=== PATIENT | male | born 1935 | race Caucasian/White ===

== ENCOUNTER 2017-10-17 07:01 | Inpatient (IN) | payer OTHER, BC ==
[~2017-10-17] VITALS: Ht 157.5 cm; Wt 60.0 kg
[2017-10-17] MEDS ORDERED: NAMENDA10 M2 PO (07:34)
[2017-10-17] MEDS ORDERED: LEVOTHYROXINE0.05 M2 PO (07:34)
[2017-10-17] MEDS ORDERED: CREON1 ECC PO (07:35)
[2017-10-17] MEDS ORDERED: CASODEX50 MG PO (07:35)
[2017-10-17] MEDS ORDERED: PRAVACHOL20 MG PO (07:36)
[2017-10-17] MEDS ORDERED: ARICEPT10 MG PO (07:36)
[2017-10-17 07:42] LABS: BASOPHIL % 0.6 % (0-2); PLATELET COUNT 215 x10^3mcL (130-400); RED CELL DISTRIBUTION WIDTH 12.5 % (11.5-14.5)
[2017-10-17 08:22] LABS: CALCIUM 9.1 mg/dL (8.5-10.1); CARBON DIOXIDE 30.5 mmol/L (21-32); CHLORIDE SERUM 102 mmol/L (98-107); CREATININE SERUM 0.8 mg/dL (0.7-1.3); GLUCOSE SERUM 87 mg/dL (74-106); POTASSIUM SERUM 4.3 mmol/L (3.5-5.1); SODIUM SERUM 138 mmol/L (136-145)
[2017-10-17 08:27] LABS: ALBUMIN 3.7 g/dL (3.4-5.0); ALKALINE PHOSPHATASE 44 U/L (46-116); ALT/SGPT 18 U/L (16-63); AST/SGOT 17 U/L (15-37); BILIRUBIN TOTAL 1.5 mg/dL (0.20-1.00); TOTAL PROTEIN, SERUM 6.6 g/dL (6.4-8.2)
[2017-10-17 10:41] VITALS: BP 156/66
[2017-10-17 11:47] LABS: CHOLESTEROL/HDL RATIO 2.2; MAGNESIUM 1.8 mg/dL (1.8-2.4)
[2017-10-17 12:00] LABS: T3 TOTAL 0.81 ng/mL
[2017-10-17 12:22] LABS: FREE T4 1.18 ng/dL (0.76-1.46); FREE THYROXINE INDEX 2.7 ug/dL (1.4-4.5); T4(THYROXINE) 7.6 ug/dL (4.7-13.3)
[2017-10-17 13:31] VITALS: BP 108/47
[2017-10-17 14:01] VITALS: BP 113/47
[2017-10-17 17:21] VITALS: BP 124/47
[2017-10-17 21:40] VITALS: BP 104/56
[2017-10-18 01:22] LABS: microscopic required? NO
[2017-10-18 01:44] LABS: urine erythrocyte NEGATIVE (NEGATIVE)
[2017-10-18 05:52] VITALS: BP 116/46
[2017-10-18 06:16] LABS: BASOPHIL % 0.3 % (0-2); PLATELET COUNT 209 x10^3mcL (130-400); RED CELL DISTRIBUTION WIDTH 12.4 % (11.5-14.5)
[2017-10-18 06:20] LABS: CALCIUM 8.4 mg/dL (8.5-10.1); CHLORIDE SERUM 106 mmol/L (98-107); CREATININE SERUM 0.7 mg/dL (0.7-1.3); GLUCOSE SERUM 92 mg/dL (74-106); MAGNESIUM 1.6 mg/dL (1.8-2.4); POTASSIUM SERUM 3.9 mmol/L (3.5-5.1); SODIUM SERUM 140 mmol/L (136-145)
[2017-10-18 06:53] LABS: PHOSPHOROUS 2.9 mg/dL (2.5-4.9)
[2017-10-18 08:20] VITALS: BP 121/49
[2017-10-18 09:09] VITALS: Ht 157.5 cm; Wt 60.0 kg
[2017-10-18 11:56] VITALS: BP 132/80
[2017-10-18 11:59] VITALS: BP 109/49
[2017-10-18 16:51] VITALS: BP 110/41
[2017-10-18 21:19] VITALS: BP 112/41
[2017-10-19] VITALS (11 sets, daily range): BP systolic 101–152; BP diastolic 47–63
[2017-10-20 05:33] VITALS: BP 137/62
[2017-10-20 05:48] LABS: BASOPHIL % 0.4 % (0-2); PLATELET COUNT 213 x10^3mcL (130-400); RED CELL DISTRIBUTION WIDTH 12.4 % (11.5-14.5)
[2017-10-20 06:18] LABS: CALCIUM 8.6 mg/dL (8.5-10.1); CARBON DIOXIDE 26.6 mmol/L (21-32); CHLORIDE SERUM 103 mmol/L (98-107); CREATININE SERUM 0.7 mg/dL (0.7-1.3); GLUCOSE SERUM 96 mg/dL (74-106); MAGNESIUM 1.9 mg/dL (1.8-2.4); PHOSPHOROUS 3.2 mg/dL (2.5-4.9); POTASSIUM SERUM 3.9 mmol/L (3.5-5.1); SODIUM SERUM 138 mmol/L (136-145)
[2017-10-20 09:31] VITALS: BP 112/42
[2017-10-20 13:38] VITALS: BP 118/50
[2017-10-20 15:45] VITALS: BP 118/50
== END 2017-10-20 16:45 | disposition home health service (06) | DRG 244 ==
LOC: ED 07:01 → DU 07:54
PROVIDERS: Emergency Medicine; Internal Medicine; Internal Medicine Clinical Cardiac Electrophysiology
PROC: 02HK3JZ Insertion of Pacemaker Lead into Right Ventricle, Percutaneous Approach (ICD-10-PCS; 2017-10-19)
PROC: 0JH604Z Insertion of Pacemaker, Single Chamber into Chest Subcutaneous Tissue and Fascia, Open Approach (ICD-10-PCS; principal; 2017-10-19 08:00)
DX: I49.5 Sick sinus syndrome (principal); R55 Syncope and collapse; G30.9 Alzheimer's disease, unspecified; F02.80 Dementia in other diseases classified elsewhere, unspecified severity, without behavioral disturbance, psychotic disturbance, mood disturbance, and anxiety; I34.0 Nonrheumatic mitral (valve) insufficiency; I36.1 Nonrheumatic tricuspid (valve) insufficiency; I10 Essential (primary) hypertension; E03.9 Hypothyroidism, unspecified; E78.00 Pure hypercholesterolemia, unspecified; F10.21 Alcohol dependence, in remission; Z68.22 Body mass index [BMI] 22.0-22.9, adult; Z85.46 Personal history of malignant neoplasm of prostate; F10.11 Alcohol abuse, in remission
CPT/HCPCS: 33207; 83880; 84439; 97110-GP; 97116-GP; 97164; 97535-GP; C1769; C1785; C1786; J0690; J2001; J2250; J3010; J3475; J7030; J8999; Q0092; Q9967

== ENCOUNTER 2018-06-18 11:19 | Emergency (ER) | payer OTHER, BC ==
[~2018-06-18] VITALS: Ht 160 cm; Wt 60.1 kg
[~2018-06-18 11:19] MED LIST: ARICEPT10 MG PO; CASODEX50 MG PO; CREON1 ECC PO; LEVOTHYROXINE0.05 M2 PO; NAMENDA10 M2 PO; PRAVACHOL20 MG PO
[2018-06-18 12:00] VITALS: Ht 160 cm; Wt 60.1 kg
[2018-06-18 15:39] VITALS: BP 135/65
== END 2018-06-18 15:39 | disposition home or self-care (01) ==
LOC: ED 11:19
DX: S01.312A Laceration without foreign body of left ear, initial encounter (principal); S11.81XA Laceration without foreign body of other specified part of neck, initial encounter; S61.412A Laceration without foreign body of left hand, initial encounter; S63.634A Sprain of interphalangeal joint of right ring finger, initial encounter; S61.401A Unspecified open wound of right hand, initial encounter; I10 Essential (primary) hypertension; E78.00 Pure hypercholesterolemia, unspecified; G30.9 Alzheimer's disease, unspecified; F02.80 Dementia in other diseases classified elsewhere, unspecified severity, without behavioral disturbance, psychotic disturbance, mood disturbance, and anxiety; Z85.46 Personal history of malignant neoplasm of prostate; W18.39XA Other fall on same level, initial encounter; W45.8XXA Other foreign body or object entering through skin, initial encounter; Y93.89 Activity, other specified; Y92.89 Other specified places as the place of occurrence of the external cause; Y99.8 Other external cause status
CPT/HCPCS: 90715; Q0092